=== PATIENT | female | born 1945 | race Caucasian/White ===

== ENCOUNTER 2016-05-22 18:32 | Inpatient (IN) | payer OTHER, MEDICARE ==
--- NOTE | ~2016-05-22 | CO ---
Unit #: [id number] #: [id number] Patient: MAHESH SAMANO [id number] [facility] [address]. [place], [place] [address] [id number] I MR#: [id number] NAME: MAHESH SAMANO. ROOM: 335 Age: 70 Sex: F Admission Date: 05/22/2016 : 1945 Attending Physician: Orlin Perez M.D. Primary Care Physician: Nitish Gutierrez M.D. Consultation Date: 05/23/2016 CONSULTATION REPORT PRIMARY CARE PHYSICIAN Nitish Gutierrez M.D. REASON FOR CONSULT Left-sided numbness. PATIENT IDENTIFICATION A 70-year-old, right-handed, female, evaluated in room 335 at [facility]. SOURCE OF INFORMATION Obtained from the patient as well as medical record. HISTORY OF PRESENT ILLNESS This is a very pleasant 70-year-old, right-handed, female with a past medical history of hypertension, hyperlipidemia, CAD, obesity and is a reformed smoker from several years ago, who presented to [facility] with complaints of new onset vertigo and nausea, which has resolved; however at that time, she states she also developed subsequent left facial and left arm heaviness and numbness. She states that she was shopping and was in her usual state of health when she suddenly did not feel good. She had some nausea and mild sensation of vertigo, though she states that has resolved. She states that she then developed some numbness on her left side of her face, arm and leg. She said it felt heavy though she states she had no trouble ambulating. She went to her primary care physician who recommended that she go to the ER via ambulance; however, the patient declined ambulance and went home, called her brother and had him bring her to the ER. She did receive a dose of aspirin in the PCP's office. She was admitted for further evaluation. She complained of associated blurred vision in her left eye, which has resolved; however, she states that the heaviness and numbness of her left side of her face and arm persisted. She presented to the ER where she was a little hypertensive. Her CT was unremarkable for any acute changes. She denies any exacerbating or alleviating factors. She is unable to tell me if the onset of symptoms was more gradual or sudden. She does report that she had associated heart palpitations. Denies chest pain, loss of consciousness, shortness of air, abdominal pain, bruising or bleeding issues or any other associated symptoms. She denies any associated syncope or near syncope. She states that she feels good today, but that she has persistent left facial and left arm heaviness. She states that she feels as though her left side of her face was drooping and feels as though her speech is a little slurred. PAST MEDICAL HISTORY Unit #: [id number] #: [id number] Patient: MAHESH SAMANO 1. Hypertension. 2. Hyperlipidemia. 3. Diabetes mellitus, type 2. 4. CAD, status post PCI and stent placement 8 years ago. 5. Recent negative stress test, per the patient by Dr. Antonio and a recent negative echo per the patient as well. I do not have those records. 6. EGD in 11/2005 with mild hemorrhagic gastritis. 7. Hypothyroidism. 8. Colonoscopy in 2013 with hemorrhoids and diverticular disease. 9. Bilateral tubal ligation. 10. Benign breast biopsy. ALLERGIES Sulfa. Ibuprofen causes upset stomach. CURRENT MEDICATIONS Include aspirin, Lasix, Lortab, Avapro, Lantus, Synthroid, Lopressor, niacin ER, NovoLog insulin, ProAir, Crestor. FAMILY HISTORY Noncontributory. SOCIAL HISTORY The patient lives with her brother and niece. She stopped smoking 15 years ago. She states that she drinks red wine on occasion, but denies any alcohol abuse. She denies illicit drug use. REVIEW OF SYSTEMS 12-point review of systems was done. Pertinent positives are as discussed above, otherwise negative. PHYSICAL EXAMINATION VITAL SIGNS: Temperature 97.6, she has been afebrile, pulse 56, respirations 18, blood pressure 166/75, oxygen saturation 97% on room air, height 4 feet 11 inches, weight 201 pounds. NEUROLOGIC: The patient is awake. She is alert and oriented to person, place, and time as well as events. No right or left confusion. No finger agnosia. She is not aphasic or apraxic. She states that she feels that her speech is still slurred. She has some very mild nonspecific dysarthria. Her brother, however, states that this is her normal speech. She can name and identify and follows simple commands and 2- and 3-step commands without difficulty. Her general fund of knowledge is intact. Cranial nerve exam, she demonstrates full butler of vision. Eyes are conjugate without ptosis or nystagmus. Extraocular movements are intact. Sensation of face and scalp is intact. Intact to soft touch and pinprick sensation in the face, arm, and leg. She has no extinction noted in sensory, facial or visual. Hearing is intact to finger rub and conversation. Tongue is midline. Uvula is midline. Palate elevation is normal. Head turning and shoulder shrug is unremarkable. Neck is supple. Motor exam, she demonstrates normal bulk and tone and equal strength in the upper extremities. In lower extremities, she demonstrates normal bulk and tone. Her right lower extremity appears to be 5/5. Left lower extremity initially appeared to be weaker, though mild. She had no drift against resistance, though initially appeared to give a good effort. Upon repeated examination, appears to be somewhat inconsistent effort, though I did repeat attempts due to difficult to differentiate whether she had a Unit #: [id number] #: [id number] Patient: MAHESH SAMANO true proximal or distal weakness. Again, sensory exam is intact. Gait and Romberg deferred. Reflexes, unable to elicit. Toes are equivocal. Coordination unremarkable. DIAGNOSTIC STUDIES IMAGING STUDIES: CT of the head on 05/22/2016; impression per Radiology report, mild age-appropriate parenchymal atrophy. No acute intracranial findings. Moderate bilateral ethmoid and right sphenoid sinus disease. CT angiogram of the head and neck on 05/22/2016; impression per Radiology report; there is no evidence of stenosis in the carotid or vertebral arteries within the neck by NASCET criteria. There is some mild plaque in left carotid bifurcations. The right vertebral artery is dominant. Intracranially, there was no evidence of flow-limiting stenosis by NASCET criteria. No aneurysm is seen. No vessel cut off. No vascular malformation. The major dural venous sinuses are patent. Some mild atherosclerotic plaque in both carotid siphons. LABORATORY RESULTS: Urinalysis; greater than 1000 glucose, micro not indicated. Troponin less than 0.05 x2 sets. Sodium 132, potassium 4.3, chloride 101, CO2 of 29, glucose 361, BUN 20, creatinine 1, estimated GFR 58.4, calcium 8.6, AST 20, ALT 20, alkaline phosphatase 104, total protein 7.2, albumin 3.9. White blood cell count 8.8, hemoglobin 12.6, hematocrit 38.4, and platelet count is 224. IMPRESSION 1. Left facial left-sided paresthesia, vertigo, palpitations, questionable etiology. No clearly objective findings on exam other than nonspecific mild dysarthria, though the patient's brother states that her speech is at her baseline. MRI of the brain is negative for any identifiable acute abnormalities. 2. Diabetes mellitus, type 2. 3. Hypertension. 4. Hyperlipidemia. 5. Coronary artery disease. PLAN The patient has persistent symptoms that are very questionable, no objective findings. No objective sensory deficits noted. The patient does not appear to have any acute intracranial abnormalities identified on MRI imaging, which has been reviewed by Dr. Barrera and radiology report noted. The patient is stable for discharge, and ruled out acute primary neurologic issue. If symptoms persist, recommend repeat outpatient MRI imaging of the brain to further evaluate. Nothing to suggest a cervical etiology at this time. Please call for any questions or issues. The patient is seen by Dr. Barrera. He agrees to the above. We discussed with the primary team and the patient is okay for discharge from neurologic standpoint. Otherwise in differential, again consider repeat MRI and consideration of demyelinating. Etiology, however, given her age and presentation to be less likely the new diagnosis. No obvious abnormal lesion seen. On MR imaging, she did have 2 very small chronic appearing T2 abnormalities. Dr. Barrera has reviewed that. They are nonspecific, and again recommended repeat MR imaging if symptoms persist. Please is call for any questions or issues. We thank you very much for allowing us to assist in the care of this patient. Unit #: [id number] #: [id number] Patient: MAHESH SAMANO Dictated by... Timmy SortoPDenia. for Kaye Wright/lester TD: 05/24/2016 04:40 JOB #: [id number] CONSULTATION REPORT X Kavitha Trent APRN X CONSULTATION REPORT
--- NOTE | ~2016-05-22 | HM ---
Unit #: [id number] #: [id number] Patient: MAHESH SAMANO [id number] [place], [place] [address] [id number] I MR#: [id number] NAME: MAHESH SAMANO. : 1945 SEX: F STUDY DATE/TIME: 05/30/2016 UNIT: C3A PCU ROOM: 335 STUDY DESCRIPTION: Holter monitor Attending Physician: Orlin Perez M.D. Referring Physician: Nitish Gutierrez M.D. Primary Care Physician: Nitish Gutierrez M.D. CARDIOLOGY REPORT EXAM Holter monitor. DATE APPLIED May 23, 2016. DATE SCANNED May 27, 2016. DATE READ May 30, 2016. ORDERED BY Orlin Perez M.D. READ BY [facility] Cardiology, Dr. Lc Antonio. REASON FOR STUDY Left-sided numbness. COMMENTS 1. Underlying rhythm is normal sinus. Sinus rate varies between 49 beats per minute as the minimum recorded heart rate and 100 BMP at a maximum recorded heart rate. 2. Rare isolated PVCs are noted with a total of 263 beats in 24 hours. 3. There were 2 runs of accelerated idioventricular rhythm. A 4-beat run at a rate of 100 per minute is noted at 11:38 a.m. 4. Very rare isolated PACs are noted with a total of 24 beats in 24 hours. There is a 3-beat run of atrial tachycardia at a rate of 115 per minute seen at 10:44 p.m. 5. There is no slowing of the heart rate, AV ron block, sinus arrest or sinus pause. 6. The patient did not maintain a symptom or activity diary. Dictated by... Kaye Milner/vijaya TD: 05/31/2016 09:09 Unit #: [id number] #: [id number] Patient: MAHESH SAMANO JOB #: [id number] CARDIOLOGY REPORT X Lc Antonio MD HOLTER MONITOR REPORT
--- NOTE | ~2016-05-22 | CT71 ---
[facility] A Service of [facility] RADIOLOGY TEXT RESULTS PATIENT: MAHESH SAMANO LOCATION: [facility] 335-01 : 46 UNIT #: [id number] AGE: [address]: Orlin Perez MD SEX: F ORDER DR: [id number] [facility] [address] [place], [place] [address] [id number] I MR#: [id number] Acc #: [id number] NAME: MAHESH SAMANO. : 1945 SEX: F STUDY DATE/TIME: 05/22/2016 19:04 UNIT: CEDOF ROOM: 01052 STUDY DESCRIPTION: CT Head Wo Contrast Attending Physician: Orlin Perez M.D. Referring Physician: Nitish Gutierrez M.D. Ordering Physician: Shaji Small D.O. Primary Care Physician: Nitish Gutierrez M.D. MEDICAL IMAGING REPORT This report is preliminary unless electronic signature is present EXAM Noncontrast CT head DATE: 05/22/2016 HISTORY Dizziness, blurred vision, numbness and tingling on the left side of the face. Onset of symptoms at 10 o'clock today. Additional history of cardiac disease, hypertension, asthma. Diabetes. COMPARISON: None. The CT exam was performed with one or more of the following radiation dose reduction techniques: automatic exposure control, adjustment of mA and/or kV according to patient size, and iterative reconstruction. FINDINGS No acute intracranial hemorrhage, mass lesion, mass effect, midline shift. Ventricular configuration is within normal limits. Mild age-appropriate parenchymal atrophy. The hooks matter-white matter junction distinction is preserved without evidence of acute infarct. Moderate bilateral ethmoid and right sphenoid sinus mucosal thickening. Mastoid air cells are clear. Calvaria is normal. IMPRESSION 1. Mild age-appropriate parenchymal atrophy. No acute intracranial findings. 2. Moderate bilateral ethmoid and right sphenoid sinus disease. Dictated by... Sadaf Cedeno M.D. THIS IS AN ELECTRONICALLY VERIFIED REPORT [facility] A Service of [facility] RADIOLOGY TEXT RESULTS PATIENT: MAHESH SAMANO LOCATION: [facility] 335-01 : [birth year] UNIT #: [id number] AGE: [address]: Orlin Perez MD SEX: F ORDER DR: Sadaf Cedeno M.D. at 05/23/2016 2:08 PM BASSAM/gael TD: 05/23/2016 08:55 JOB #: [id number] MEDICAL IMAGING REPORT COPY
--- NOTE | ~2016-05-22 | CT17 ---
[facility] A Service of [facility] & [facility] RADIOLOGY TEXT RESULTS PATIENT: MAHESH SAMANO LOCATION: [facility] 335- : 46 UNIT #: [id number] AGE: [address]: Orlin Perez MD SEX: F ORDER DR: [id number] [facility] [address] [place], [place] [address] [id number] I MR#: [id number] Acc #: [id number] NAME: MAHESH SAMANO. : 1945 SEX: F STUDY DATE/TIME: 05/22/2016 21:47 UNIT: [address] ROOM: [facility] STUDY DESCRIPTION: CT Angio Head Attending Physician: Orlin Perez M.D. Referring Physician: Nitish Gutierrez M.D. Ordering Physician: Holley Moscoso M.D. Primary Care Physician: Nitish Gutierrez M.D. MEDICAL IMAGING REPORT This report is preliminary unless electronic signature is present EXAM Head and neck CT angiogram on 05/23/2016 at 00:45 hours. INDICATIONS Dizziness, blurred vision and left-side numbness to the face since 10:00 a.m. yesterday. Tingling in the hand. History of hypertension. TECHNIQUE Axial images were obtained through the head and neck following IV contrast administration. 3-D reformats were obtained. This CT exam was performed with one or more of the following radiation dose reduction techniques: automatic exposure control, adjustment of mA and/or kV according to patient size, and iterative reconstruction. COMPARISON No comparison CTA. FINDINGS Within the neck, there is minimal plaque at the carotid bifurcations. There is no stenosis by NASCET criteria in the carotid or vertebral arteries. There is no carotid or vertebral dissection. The right vertebral artery is dominant. Intracranially, there is some mild plaque in the carotid siphons, but there is no stenosis by NASCET criteria. No intracranial vessel cutoff is seen and there is no evidence of vascular malformation. No aneurysm. The major dural venous sinuses are patent. IMPRESSION 1. There is no evidence of stenosis in the carotid or vertebral arteries within the neck by NASCET criteria. There is some mild plaque in both carotid bifurcations. The right vertebral artery is dominant. [facility] A Service of [facility] & [facility] RADIOLOGY TEXT RESULTS PATIENT: MAHESH SAMANO LOCATION: C3A 335-01 : [birth year] UNIT #: [id number] AGE: [address]: Orlin Perez MD SEX: F ORDER DR: 2. Intracranially, there is no evidence of flow-limiting stenosis by NASCET criteria. No aneurysm is seen, there is no vessel cutoff. No vascular malformation. The major dural venous sinuses are patent. There is some mild atherosclerotic plaque in both carotid siphons. Dictated by... Robert Montiel Jr., M.D. THIS IS AN ELECTRONICALLY VERIFIED REPORT Robert Montiel Jr., M.D. at 05/23/2016 10:00 PM AUGUSTO/enzo TD: 05/23/2016 10:46 JOB #: [id number] MEDICAL IMAGING REPORT COPY
--- NOTE | ~2016-05-22 | EKG ---
PATIENT: MAHESH SAMANO UNIT #: [id number] Ventricular Rate: 73 BPM Atrial Rate: 73 BPM P-R Interval: 206 ms QRS Duration: 82 ms Q-T Interval: 380 ms QTC Calculation(Bezet): 418 ms P Kingston: 69 degrees Calculated R Kingston: 77 degrees Calculated T Kingston: 59 degrees Diagnosis Line: Normal sinus rhythm with sinus arrhythmia Diagnosis Line: Low voltage QRS Diagnosis Line: Borderline ECG Diagnosis Line: No previous ECGs available Diagnosis Line: Confirmed by MAU MULLER MD ([id number]) on Diagnosis Line: 05/23/2016 4:11:36 PM INTERPRETING MD: YOHANA INTERIANO
--- NOTE | ~2016-05-22 | MR18 ---
[facility] A Service of [facility] & [facility] RADIOLOGY TEXT RESULTS PATIENT: MAHESH SAMANO LOCATION: [facility] 335- : 46 UNIT #: [id number] AGE: [address]: Orlin Perez MD SEX: F ORDER DR: [id number] [facility] [address] [place], [place] [address] [id number] I MR#: [id number] Acc #: [id number] NAME: MAHESH SAMANO. : 1945 SEX: F STUDY DATE/TIME: 05/23/2016 8:47 [facility]: [facility] STUDY DESCRIPTION: MR Brain Wo Contrast Attending Physician: Orlin Perez M.D. Referring Physician: Nitish Gutierrez M.D. Ordering Physician: Holley Moscoso M.D. Primary Care Physician: Nitish Gutierrez M.D. MRI CENTER REPORT This report is preliminary unless electronic signature is present. EXAM MRI of the brain without contrast dated 05/23/[address] head without contrast dated 05/22/2016. CT angiogram head and neck dated 05/23/2016. HISTORY Dizziness, blurred vision, numbness and tingling in the left side, heaviness since 10 a.m. on 05/22/2016 TECHNIQUE Multisequence, multiplanar imaging of the brain was obtained without contrast. FINDINGS No acute stroke, space occupying intracranial mass, mass effect, midline shift or hydrocephalus. Few small hyperintense T2 signal lesions are noted in the bifrontal subcortical white matter, nonspecific. There is small cavum septum pellucidum and vergae. Paranasal sinus mucosal thickening is seen with mild S-shaped nasal septal deviation. Imaged orbits of the ocular structures and mastoids do not demonstrate any significant abnormality. Thick slices through the sella with the pituitary gland, pineal region are within normal limits. Degenerative changes are in the upper cervical spine, unremarkable. IMPRESSION 1. Nonspecific scattered few hyperintense T2 signal lesions are noted in the brain likely related to mild chronic microvascular ischemic change or migraine based on age and statistics. 2. Paranasal sinus mucosal thickening is noted. Correlate with sinusitis. Small air fluid level is suspected in the right sphenoid STS. [facility] A Service of [facility] & [facility] RADIOLOGY TEXT RESULTS PATIENT: MAHESH SAMANO LOCATION: [facility] 335-01 : 46 UNIT #: [id number] AGE: [address]: Orlin Perez MD SEX: F ORDER DR: and bilateral ethmoid sinuses. Superimposed [id number] sinusitis is in the differential consideration in the appropriate clinical setting. 3. No acute stroke, space occupying intracranial mass, hydrocephalus or midline shift. 4. Tiny cavum septum pellucidum and vergae are noted incidentally. Dictated by... Isabella Rojas M.D. THIS IS AN ELECTRONICALLY VERIFIED REPORT Isabella Rojas M.D. at 05/23/2016 3:34 PM CPR/to TD: 05/23/2016 13:46 JOB #: [id number] MRI CENTER REPORT COPY
--- NOTE | ~2016-05-22 | DS ---
Unit #: [id number] #: [id number] Patient: MAHESH SAMANO [id number] [address] [place], [place] [address] [id number] I MR#: [id number] NAME: MAHESH SAMANO. ROOM: 335 Age: 70 Sex: F Admission Date: 05/22/2016 : 1945 Discharge Date: 05/23/2016 Attending Physician: Orlin Perez M.D. Referring Physician: Nitish Gutierrez M.D. Primary Care Physician: Nitish Gutierrez M.D. DISCHARGE SUMMARY DISCHARGE DIAGNOSES 1. Left sided numbness which had resolved at this time: The patient has had negative stroke workup. MRI shows that there is no acute or subacute cerebrovascular accident. Neurology felt the symptom has persisted too long to felt to be transient ischemic attack. Patient will be given 24 hour Holter monitor to assess for any arrhythmia. The patient has been given careful instructions for any symptoms of limb paralysis, slurred speech, facial droop, drooling, to notify physician or to come back to the emergency department for further evaluation. 2. Type 2 diabetes, on insulin therapy at home. 3. Hyperlipidemia, on statin therapy at home. 4. Essential hypertension. 5. History of coronary artery disease, status post percutaneous coronary intervention and stent. Had recent negative stress and normal echocardiogram. 6. History of hypothyroidism. PROCEDURES None. [facility] ANALYST Dr. Barrera - Neurology. IMAGING Imaging consists of CT angio of head and neck with impression - there is no evidence of stenosis in the carotid or vertebral arteries within the neck by NASCET criteria. There is some mild plaque in both carotid bifurcations. The right vertebral artery is dominant. 2) Intracranially, there is no evidence of flow-limiting stenosis by NASCET criteria. No aneurysm is seen, there is no vessel cutoff. No vascular malformation. The major dural venous sinuses are patent. There is some mild atherosclerotic plaque in both carotid siphons. MRI of brain without contrast with impression - nonspecific scattered few hyperintense T2 signal lesions are noted in the brain likely related to mild chronic microvascular ischemic change or migraine based on age and statistics. Paranasal sinus mucosal thickening is noted. Correlate with sinusitis. Small air fluid level is suspected in the right sphenoid and bilateral ethmoid sinuses. Superimposed [id number] sinusitis is in the differential consideration in the appropriate clinical setting. No acute stroke, space occupying intracranial mass, hydrocephalus or midline shift. Tiny cavum septum pellucidum and vergae are noted incidentally. Unit #: [id number] #: [id number] Patient: MAHESH SAMANO LABS On the day of discharge, the patient's labs include a BMP with glucose of 361, BUN 20, creatinine 1.0, sodium 132, potassium 4.3, chloride 101, CO2 29, calcium 8.6, total protein 7.2, albumin is 3.9, total bilirubin is 0.3. AST is 20, ALT is 20, alkaline phos. is 104. CBC with WBC of 8.8, RBC is 4.60, hemoglobin is 12.6, hematocrit is 38.4, MCV is 83.6, MCH is 27.4, MCHC is 32.8, RDW is 14.4, platelets of 224, MPV is 8.3. HOSPITAL COURSE The patient is a pleasant 70-year-old female with a past medical history of essential hypertension, hyperlipidemia, type 2 diabetes, coronary artery disease, who presents to the emergency department due to left sided tingling. The patient stated that she was feeling well until the morning of admission around 10:00 when she started to have symptoms of nausea, vomiting and sensation of mild vertigo. She saw her primary care physician shortly thereafter who recommended that she be taken to the emergency room for further evaluation. However, the patient declined ambulance and she went home initially. She continued to have increasing symptoms with her left eye feeling blurred and left sided tingling of the left face, arm and left hand with some heaviness in her left arm and left hand as well. She presented to the emergency department where she was somewhat hypertensive. Her initial work was fairly unremarkable except for glucose of 361. Her primary care physician gave her 325 mg aspirin orally prior to discharging her to the emergency department. Head CT shows some age appropriate atrophy and mild sinus disease. EKG with sinus rhythm with occasional PVC on exam. She has subjective numbness on the left face and left arm but she had no physical focal deficits. Dr. Barrera of neurology was consulted given her stroke-like symptoms. We have proceeded with MRI of the brain. At the time of my assessment, the patient is symptom free and she states that she does admit to having some stressors at home. She tells me that she has a "crazy brother" but she tells me that when she is unable to tolerate him anymore she drives off and does not let this bother her. She denies that this is giving her any symptoms of depression or anxiety. The patient is stable at this time to be discharged home. We recommend that if patient's symptoms do recur that have an MRI evaluated. Due to no CVA and less likely TIA symptoms of neurology, I recommend that she resume her home management for antiplatelet and statin therapy. We will not be escalating this any further at this time. A Holter monitor has been ordered and she will have it for 24 hours. Results can be called back to Dr. Gutierrez, her primary care physician. DISCHARGE CONDITION Stable. DISCHARGE DIET Heart healthy with parameters of consistent carb per [place] [employer] recommended diet. ACTIVITIES Resume activity as prior to hospitalization with ambulating every day as tolerated. DISCHARGE MEDICATIONS Includes: 1. Aspirin 81 mg orally daily. Unit #: [id number] #: [id number] Patient: MAHESH SAMANO 2. Farxiga 5 mg orally daily. 3. Lasix 20 mg orally daily. 4. Lortab 5/500, half tablet orally twice daily. 5. Irbesartan 300 mg orally daily. 6. Lantus 40 units subcutaneously at bedtime. 7. Levothyroxine 150 mg orally daily. 8. Lopressor 12.5 mg orally daily. 9. Niacin extended release 500 mg orally at bedtime. 10. NovoLog 15 units subcutaneously three times daily and at bedtime. 11. ProAir two puffs inhaled every four hours as needed for shortness of breath and/or wheezing. 12. Crestor 40 mg orally at bedtime. Dictated by... Stacey Schreiber PA-C for Kaye Valladares/jordana TD: 05/25/2016 07:09 JOB #: [id number] DISCHARGE SUMMARY X X DISCHARGE SUMMARY
--- NOTE | ~2016-05-22 | HP ---
Unit #: [id number] #: [id number] Patient: MAHESH SAMANO [id number] [address] [place], [place] [address] [id number] I MR#: [id number] NAME: MAHESH SAMANO. ROOM: 87676 Age: 70 Sex: F Admission Date: 05/22/2016 : 1945 Attending Physician: Holley Moscoso M.D. Referring Physician: Nitish Gutierrez M.D. Primary Care Physician: Nitish Gutierrez M.D. HISTORY AND PHYSICAL CHIEF COMPLAINT Left-sided numbness, slurred speech, and dizziness. HISTORY OF PRESENT ILLNESS This pleasant 70-year-old female with hypertension, hyperlipidemia, AODM, and CAD, is admitted for complaints of left-sided tingling. The patient states that she was well until about 10 o'clock this morning when she developed nausea, vomiting, and sensation of mild vertigo. She saw her primary care physician shortly afterwards, who recommended that she be taken immediately to the ER. However, the patient declined ambulance, and I believe she went home initially. She continued to have increasing symptoms with her left eye feeling blurred and left-sided tingling of the left face, arm, and left hand with some heaviness in her left arm and left hand as well. She presented to this emergency department this afternoon where she was somewhat hypertensive. Her workup otherwise is fairly unremarkable except for a glucose of 361. Her primary care physician gave her 325 mg of aspirin prior to her coming to the ER. Head CT shows mild age-appropriate atrophy and mild sinus disease only. EKG shows a sinus rhythm with occasional APC. On examination, she has a subjective numbness over the left face and left arm. PAST MEDICAL HISTORY 1. Hypertension. 2. Hyperlipidemia. 3. Adult-onset diabetes mellitus. 4. Coronary artery disease, status post PCI and stent placement patient reports about eight years ago. She reports a recent negative stress test by Dr. Antonio and a recent echo performed I believe over the past week or two. 5. EGD in November 2005 with mild hemorrhagic gastritis. 6. Hypothyroidism. 7. Colonoscopy in September 2013 with hemorrhoids and diverticular disease. 8. Bilateral tubal ligation. 9. Benign breast biopsy. ALLERGIES SULFA. IBUPROFEN CAUSES STOMACH UPSET. HOME MEDICATIONS 1. Aspirin 81 mg daily. 2. Lasix 20 mg daily as needed. 3. Lortab 5/500 at 1/2 tablet b.i.d. p.r.n. 4. Avapro 300 mg daily. Unit #: [id number] #: [id number] Patient: MAHESH SAMANO 5. Lantus 40 units subcutaneous at bedtime. 6. Synthroid 0.15 mg daily. 7. Lopressor 12.5 mg b.i.d. 8. Niacin ER 500 mg at bedtime. 9. NovoLog 15 units t.i.d. with meals plus sliding scale insulin. 10. ProAir as needed. 11. Crestor 40 mg each evening. FAMILY HISTORY Malignancy. SOCIAL HISTORY The patient lives with her brother and niece. She stopped smoking 15 years ago. She drinks occasional dry red wine. REVIEW OF SYSTEMS Notable for a sensation of dizziness, some slurred speech, left-sided tingling of the face and left arm with heaviness in the left face and left arm, blurred vision left eye, hypertension, hyperlipidemia, AODM, CAD, some palpitations, hypothyroidism, and above-mentioned surgeries. All other systems were reviewed and are otherwise negative. PHYSICAL EXAMINATION GENERAL: A pleasant, moderately obese, 70-year-old female currently in no acute distress. VITAL SIGNS: Temperature 97.6, pulse 80, respirations 16, blood pressure 156/64, and O2 saturation is 100% on room air. HEENT: Eyes PERRLA. Extraocular muscles are intact. Pharynx is benign. NECK: Supple without adenopathy, thyromegaly, or carotid bruits. CHEST: Clear. CARDIAC: Normal S1 and S2, without S3, S4, or murmur. ABDOMEN: Bowel sounds are present. No hepatosplenomegaly, tenderness, or masses. EXTREMITIES: Without clubbing, cyanosis, or edema. Pedal pulses are present. No ulcers on the feet. NEUROLOGIC: Patient is awake, alert, and oriented. Her speech is fluent. Cranial nerves are intact. She has +5 over 5 strength throughout. Normal rapid alternating movements. Normal mugtoh-ka-xkkf. Negative pronator drift. Normal faps-ey-jknk. She can sit up without assistance. She does however, feel somewhat dizzy when sitting up. DIAGNOSTIC STUDIES LABORATORY: Hematocrit 38.4 with normal white count and platelet count. SMA-12: Glucose is 361 and sodium 132. Cardiac markers are negative. Urinalysis with positive glucose. IMAGING: Head CT shows age-appropriate atrophy and sinus disease. CARDIOLOGY: EKG normal sinus rhythm, rate 73, with occasional APC. ASSESSMENT 1. Left-sided numbness affecting the face and left arm with complaints of heaviness in the face and arm and slurred speech. Examination is unremarkable except for subjective numbness. 2. Adult-onset diabetes mellitus with hyperglycemia. 3. Hyperlipidemia. 4. Hypertension. 5. Coronary artery disease, status post percutaneous coronary Unit #: [id number] #: [id number] Patient: MAHESH SAMANO intervention and stent, with recent negative stress test and echocardiogram. 6. Hypothyroidism. PLANS 1. CTA of the head and neck. 2. Increase aspirin. 3. MRI of the brain, Holter monitor. Will obtain prior echo and stress test results and obtain a lipid profile. 4. DVT prophylaxis. 5. Neuro checks q.4 hours. 6. Neurology consultation. Dictated by Kaye Sy/faye TD: 05/22/2016 21:59 JOB #: [id number] HISTORY AND PHYSICAL X Holley Moscoso MD X HISTORY AND PHYSICAL
[2016-05-22 16:23] LABS: BASOPHIL# 0.1 X10e3 (0-0.3); EOSINOPHIL# 0.5 X10e3 (0-0.7); EOSINOPHIL% 5.6 % (0.0-7.0); HEMATOCRIT 38.4 % (35.0-45.0); HEMOGLOBIN 12.6 gm/dL (12.0-16.0); LYMPHOCYTE# 2.1 X10e3 (1.0-3.5); LYMPHOCYTE% 23.5 % (17.0-45.0); MEAN CELL VOLUME 83.6 FL (83-96); MEAN CORPUSCULAR HEMOGLOBIN 27.4 PG (28-34); MEAN CORPUSCULAR HGB CONC 32.8 g/dL (30-36); MEAN PLATELET VOLUME 8.3 FL (6.5-11.5); MONOCYTE# 0.4 X10e3 (0-1.0); MONOCYTE% 4.9 % (3.0-12.0); NEUTROPHIL# 5.7 X10e3 (1.5-7.1); PLATELET COUNT 224 X10e3 (140-420); RED CELL DISTRIBUTION WIDTH 14.4 % (11.0-15.5); WHITE BLOOD COUNT 8.8 X10e3 (4.0-10.5)
[2016-05-22 16:28] LABS: DIFF IND NO
[2016-05-22 16:56] LABS: ALBUMIN SERUM 3.9 g/dL (3.5-5.0); BILIRUBIN, DIRECT 0.1 mg/dL (0.0-0.2); BILIRUBIN,INDIRECT 0.2 mg/dL (0.0-0.9); BILIRUBIN,TOTAL 0.3 mg/dL (0.2-2.0); CALCIUM SERUM 8.6 mg/dL (8.4-10.2); GLOM FILT RATE Estimated 58.4 mL/min (>60); POTASSIUM 4.3 mmol/L (3.5-5.1); PROTEIN TOTAL SERUM 7.2 g/dL (6.0-8.3)
[~2016-05-22 18:32] MED LIST: ACTOS PO; ALBUTEROL17 GM; ALDACTAZIDE 25/1 TAB; ASPIRIN; AVANDIA; AVAPRO300 M1 PO; BAYER CHEWABLE81 MG PO; CRESTOR40 MG PO; HYDROCHLOROTHIA25 MG DOB; JANUVIA PO; LANTUS SOLOSTAR3 ML; LANTUS100 U/ML; LASIX20 MG PO; LESCOL XL80 MG; LORTAB 5/500 TA1 TA1 PO; METOPROLOL TAR25 MG DOB; MULTI-VITAMIN1 TAB; NIACIN500 M2 PO; NOVOLOG100 U/M2; PERCOCET5/325 PO; PRILOSEC; SYNTHROID; SYNTHROID PO; VICODIN 5/500 T1 TAB PO; VYTORIN 10/40 T1 TAB; ZESTORETIC 20/21 TAB
[2016-05-22 18:38] LABS: POC - TROPONIN <0.05 ng/mL (<=0.05)
[2016-05-22 18:51] LABS: POC - CKMB 2.2 ng/mL (0.0-7.9); POC - TROPONIN <0.05 ng/mL (<=0.05)
[2016-05-22 18:55] LABS: URINE SOURCE CLEAN CATCH
[2016-05-22 19:02] LABS: URINE APPEARANCE CLEAR; URINE BILIRUBIN NEG (NEG); URINE BLOOD NEG (NEG); URINE COLOR YELLOW; URINE GLUCOSE >1000 MG/DL (NEG); URINE KETONE NEG (NEG); URINE LEUKOCYTE ESTERASE NEG (NEG); URINE NITRATE NEG (NEG); URINE PROTEIN NEG (NEG); URINE SPECIFIC GRAVITY 1.021 (1.003-1.035); URINE UROBILINOGEN 0.2 MG/DL (NEG)
[2016-05-22 19:19] LABS: CULTURE INDICATED? NO
[2016-05-22] MEDS ORDERED: ASPIRIN81 M2 PO (20:23)
[2016-05-22] MEDS ORDERED: FARXIGA5 MG PO (20:23)
[2016-05-22] MEDS ORDERED: LASIX20 MG PO (20:24)
[2016-05-22] MEDS ORDERED: LORTAB 5/500 TA1 TA2 PO (20:24)
[2016-05-22] MEDS ORDERED: LEVO-T125 MCG PO (20:25)
[2016-05-22] MEDS ORDERED: IRBESARTAN300 MG PO (20:25)
[2016-05-22] MEDS ORDERED: LANTUS100 U/ML SUBQ (20:25)
[2016-05-22] MEDS ORDERED: LOPRESSOR PO (20:26)
[2016-05-22] MEDS ORDERED: NIACIN ER500 MG PO (20:26)
[2016-05-22] MEDS ORDERED: NOVOLOG100 U/M1 SUBQ (20:27)
[2016-05-22] MEDS ORDERED: PROAIR HFA8.5 GM INH (20:28)
[2016-05-22] MEDS ORDERED: CRESTOR40 MG PO (20:28)
[2016-07-13] MEDS ORDERED: LANTUS100 U/ML (12:07)
[2016-07-13] MEDS ORDERED: VITAMIN D2000 UNIT PO (12:09)
== END 2016-05-23 18:57 | disposition home or self-care (01) | DRG 93 ==
LOC: CED 18:32 → CEDOF 21:20 → C3A PCU 05-23 09:22
PROVIDERS: Emergency Medicine; Student in an Organized Health Care Education/Training Program
DX: R29.810 Facial weakness (principal); I10 Essential (primary) hypertension; R20.8 Other disturbances of skin sensation; E11.9 Type 2 diabetes mellitus without complications; E78.5 Hyperlipidemia, unspecified; I25.10 Atherosclerotic heart disease of native coronary artery without angina pectoris; Z95.5 Presence of coronary angioplasty implant and graft; E03.9 Hypothyroidism, unspecified; Z88.2 Allergy status to sulfonamides; Z88.6 Allergy status to analgesic agent; Z87.891 Personal history of nicotine dependence; R42 Dizziness and giddiness; R00.2 Palpitations
CPT/HCPCS: 36415; 70450; 70496; 70498; 70551; 80048; 80076; 81003; 82553; 82947; 84484; 85025; 90732; 93005; 93225; 93226; 94640; 99285; G0009; J1815; Q9967

== ENCOUNTER → 2016-06-21 | Outpatient (CLI) | payer OTHER, MEDICARE ==
[~2016-06-21] MED LIST changes: +ASPIRIN81 M2 PO; +FARXIGA5 MG PO; +IRBESARTAN300 MG PO; +LANTUS100 U/ML SUBQ; +LEVO-T125 MCG PO; +LOPRESSOR PO; +LORTAB 5/500 TA1 TA2 PO; +NIACIN ER500 MG PO; +NOVOLOG100 U/M1 SUBQ; +PROAIR HFA8.5 GM INH; +VITAMIN D2000 UNIT PO
--- NOTE | ~2016-06-21 | NM22 ---
[facility] A Service of [facility] & [facility] RADIOLOGY TEXT RESULTS PATIENT: MAHESH SAMANO LOCATION: US : 46 UNIT #: [id number] AGE: [address]: Luis Manuel Campos MD SEX: F ORDER DR: [id number] [id number] [facility] [place], [place] [address] [id number] O MR#: [id number] Acc #: [id number] NAME: MAHESH SAMANO : 1945 SEX: F STUDY DATE/TIME: 06/21/2016 9:42 UNIT: CGUS ROOM: STUDY DESCRIPTION: NM Hepatobiliary W GB Pharm Attending Physician: Luis Manuel Campos Jr., M.D. Referring Physician: Luis Manuel Campos Jr., M.D. Ordering Physician: Luis Manuel Campos Jr., M.D. Primary Care Physician: Nitish Gutierrez M.D. MEDICAL IMAGING REPORT This report is preliminary unless electronic signature is present EXAM HIDA scan with Kinevac CCK, 06/21/2016 HISTORY Right upper quadrant abdominal pain, generalized abdominal burning sensation with loose stools. Abdominal bloating and gas. Symptoms for 6 months. FINDINGS The patient received an intravenous injection of 6 mCi of technetium 99m tagged Choletec for hepatobiliary imaging. 1 hour following injection of the radiopharmaceutical the patient received an intravenous injection of 1.8 mcg of Kinevac. There is homogeneous distribution of the radiotracer throughout the liver. Gallbladder activity was seen by 30 minutes postinjection of the radiopharmaceutical. Following Kinevac injection the gallbladder ejection fraction was 79.4% (normal is greater than 30%). IMPRESSION Normal HIDA scan with gallbladder ejection fraction of 79.4%. Dictated by... Delon Hernadez M.D. THIS IS AN ELECTRONICALLY VERIFIED REPORT Delon Hernadez M.D. at 06/21/2016 1:46 PM LESTER/germaine TD: 06/21/2016 11:45 JOB #: [id number] [facility] A Service of [facility] & [facility] RADIOLOGY TEXT RESULTS PATIENT: MAHESH SAMANO LOCATION: [facility] #: [id number] : [birth year] UNIT #: [id number] AGE: [address]: Luis Manuel Campos MD SEX: F ORDER DR: MEDICAL IMAGING REPORT Page 1 of 1 COPY
--- NOTE | ~2016-06-21 | US6 ---
[facility] A Service of [facility] & [facility] RADIOLOGY TEXT RESULTS PATIENT: MAHESH SAMANO LOCATION: [facility] : [birth year] UNIT #: [id number] AGE: [address]: Luis Manuel Campos MD SEX: F ORDER DR: [id number] [facility] [address] [facility]. [place], [place] [address] [id number] O MR#: [id number] Acc #: [id number] NAME: MAHESH SAMANO : 1945 SEX: F STUDY DATE/TIME: 06/21/2016 8:08 UNIT: US ROOM: STUDY DESCRIPTION: US Abdominal Limited Attending Physician: Luis Manuel Campos Jr., M.D. Referring Physician: Luis Manuel Campos Jr., M.D. Ordering Physician: Luis Manuel Campos Jr., M.D. Primary Care Physician: Nitish Gutierrez M.D. MEDICAL IMAGING REPORT This report is preliminary unless electronic signature is present EXAM Right upper quadrant ultrasound 06/21/2016 HISTORY Right upper quadrant abdominal pain for 2 months. FINDINGS The liver is homogeneous in echotexture demonstrates no cystic or solid mass lesions. The intra and extrahepatic bile ducts are not dilated. The gallbladder is normal with no evidence of cholelithiasis, wall thickening or pericholecystic fluid. The common duct measures 5 mm. The pancreas is normal. 2 cysts are seen on the right kidney measuring 2.2 cm and 5.5 cm respectively. IMPRESSION 1. Normal gallbladder. 2. Right renal cysts. Dictated by... Delon Hernadez M.D. THIS IS AN ELECTRONICALLY VERIFIED REPORT Delon Hernadze M.D. at 06/22/2016 8:07 AM KRT/to TD: 06/21/2016 13:14 JOB #: [id number] MEDICAL IMAGING REPORT Page 1 of 1 COPY
== END | disposition home or self-care (01) ==
LOC: CGUS 07:47
DX: R10.13 Epigastric pain (principal); R10.11 Right upper quadrant pain; N28.1 Cyst of kidney, acquired
CPT/HCPCS: 76705; 78227; A9537; J2805

== ENCOUNTER → 2016-07-20 | Day surgery (SDC) | payer OTHER, MEDICARE ==
--- NOTE | ~2016-07-20 | OR ---
Unit #: [id number] #: [id number] Patient: MAHESH SAMANO [id number] [address] [place], [place] [address] [id number] O MR#: [id number] NAME: MAHESH SAMANO ROOM: Date of Procedure: 07/20/2016 Admission Date: 07/20/2016 Surgeon: Luis Manuel Campos Jr., M.D. : 1945 Attending Physician: Luis Manuel Campos Jr., M.D. Referring Physician: Luis Manuel Campos Jr., M.D. Primary Care Physician: Nitish Gutierrez M.D. OPERATIVE REPORT INDICATIONS FOR PROCEDURE The patient is a 70-year-old white female, who recently presented to the office complaining of some intermittent rectal bleeding as well as abdominal pain. Most of her abdominal pains in mid epigastric, but she has also had some lower abdominal pain. She is brought in this time at her request for upper and lower endoscopy. She has had no recent endoscopies. PREOPERATIVE DIAGNOSES Possible occult ulcer disease, rectal bleeding etiology? POSTOPERATIVE DIAGNOSES On upper endoscopy, the patient was noted to have a small hiatal hernia and mild erosive gastritis mostly involving the antrum and cardia, and moderate duodenitis of the bulb and the second portion of the duodenum. On colonoscopy, the patient was noted to have evidence of normal scope. ANESTHESIA MAC anesthesia. PROCEDURE PERFORMED Flexible fiberoptic esophagogastroduodenoscopy with antral biopsy for Helicobacter pylori and flexible colonoscopy to the distal ileum. DESCRIPTION OF PROCEDURE The patient was positioned in Bourne position with left side down. After being given MAC anesthesia, Olympus XQ scope was passed through the proximal esophagus. The entire esophagus was examined. There was no evidence of any significant esophagitis and no evidence of any stenosis. The scope was advanced through the GE junction, where there was a small hiatal hernia down into the cardia, fundic, and antral region of the stomach and retroflexed back up to the area of the cardia, again noted was a small hiatal hernia. There was some mild erosive gastritis in the cardia as well as in the antral area. The stomach distended well without evidence of rigidity, no evidence of any gastric ulcer disease. The scope was advanced down the prepyloric region, where a biopsy was taken from the antrum for Helicobacter pylori without significant bleeding. Initially, there was a small amount of coffee-ground material in the stomach prior to the biopsy. The scope was advanced through the pylorus and the duodenal bulb, where there was moderate duodenitis without ulceration mostly between the first and down to the second portion of the duodenum. The scope was advanced down to the second portion of the duodenum towards Unit #: [id number] #: [id number] Patient: MAHESH SAMANO third portion and this all appeared normal. The scope was then slowly removed. Biopsy had been taken from the antrum for H pylori and there was no significant bleeding. The patient was repositioned for colonoscopy. Digital rectal examination was performed, which revealed no palpable mass or tenderness. No blood or stool within the rectal ampulla. The Olympus colonoscope was advanced through the anal canal up the rectum and retroflexed down to the area of the anorectal region. There were small internal hemorrhoidal tags felt to be of no major consequence. The scope was then straightened and advanced up in the rectosigmoid, in the sigmoid and descending colon areas, around the splenic flexure and the transverse colon, around the hepatic flexure and ascending colon, down in the area of the cecum. The light from the tip of the scope could be seen transilluminating through right lower quadrant abdominal wall area. The scope was advanced up the distal ileum approximately 10 to 12 inches. There was no evidence of any ileitis or inflammatory bowel disease. The scope was slowly removed. There were no tumors, polyps, cancer, or AVMs. No evidence of any colitis, diverticulosis, or diverticulitis. The caliber of the colon appeared normal throughout without evidence of narrowing or obstruction. The scope was removed. The patient tolerated the procedure well and discharged in satisfactory condition. Dictated by... Luis Maunel Campos Jr., M.D. JMB/lester TD: 07/21/2016 00:07 JOB #: [id number] OPERATIVE REPORT Page 1 of 1 X Luis Manuel Campos MD X PROCEDURE OPERATIVE NOTE
== END | disposition home or self-care (01) ==
LOC: COPS 10:12
DX: K29.00 Acute gastritis without bleeding (principal); K29.80 Duodenitis without bleeding; K62.5 Hemorrhage of anus and rectum; K64.8 Other hemorrhoids; K44.9 Diaphragmatic hernia without obstruction or gangrene; I10 Essential (primary) hypertension; J44.9 Chronic obstructive pulmonary disease, unspecified; J45.909 Unspecified asthma, uncomplicated; E03.9 Hypothyroidism, unspecified; E11.9 Type 2 diabetes mellitus without complications; E66.9 Obesity, unspecified; K21.9 Gastro-esophageal reflux disease without esophagitis; M19.90 Unspecified osteoarthritis, unspecified site; Z68.41 Body mass index [BMI] 40.0-44.9, adult; Z86.73 Personal history of transient ischemic attack (TIA), and cerebral infarction without residual deficits; Z87.891 Personal history of nicotine dependence; Z88.2 Allergy status to sulfonamides; Z88.8 Allergy status to other drugs, medicaments and biological substances; Z79.82 Long term (current) use of aspirin; Z79.899 Other long term (current) drug therapy; Z95.5 Presence of coronary angioplasty implant and graft
CPT/HCPCS: 82947; 87077; J2250

== ENCOUNTER → 2016-11-07 | Outpatient (CLI) | payer OTHER, MEDICARE ==
[2016-11-07 15:23] LABS: ALBUMIN SERUM 3.7 g/dL (3.5-5.0); BILIRUBIN,TOTAL 0.5 mg/dL (0.2-2.0); BUN/CREATININE RATIO 17.77; CALCIUM SERUM 8.5 mg/dL (8.4-10.2); CREATININE SERUM 0.9 mg/dL (0.6-1.4); GLOM FILT RATE Estimated 64.8 mL/min (>60); POTASSIUM 4.5 mmol/L (3.5-5.1); PROTEIN TOTAL SERUM 6.5 g/dL (6.0-8.3); URIC ACID 4.4 mg/dL (2.6-7.2)
== END | disposition home or self-care (01) ==
LOC: CLAB 13:49
PROVIDERS: Internal Medicine Nephrology
DX: N28.9 Disorder of kidney and ureter, unspecified (principal)
CPT/HCPCS: 36415; 80053; 84550; 86334

== ENCOUNTER → 2016-11-28 | Outpatient (CLI) | payer OTHER, MEDICARE ==
--- NOTE | ~2016-11-28 | US78 ---
[facility] A Service of [facility] & [facility] RADIOLOGY TEXT RESULTS PATIENT: MAHESH SAMANO LOCATION: CNIV : 47 UNIT #: [id number] AGE: [address]: Diogenes Miller MD SEX: F ORDER DR: [id number] [facility] [address] [place], [place] [address] [id number] O MR#: [id number] Acc #: [id number] NAME: MAHESH SAMANO : 1945 SEX: F STUDY DATE/TIME: 11/28/2016 9:20 UNIT: CNIV ROOM: STUDY DESCRIPTION: US Kidney Duplex Complete Attending Physician: Sterling Miller M.D. Referring Physician: Sterling Miller M.D. Ordering Physician: Sterling Miller M.D. Primary Care Physician: Nitish Gutierrez M.D. MEDICAL IMAGING REPORT This report is preliminary unless electronic signature is present EXAM Renal Doppler. INDICATIONS Hypertension for 40 years. TECHNIQUE Westbrook-scale, color Doppler and spectral Doppler waveform analysis was performed through the patient's abdomen. FINDINGS Patient does appear to have a right renal cyst. This is better imaged on the patient's dedicated westbrook-scale images. No hydronephrosis is seen on either side. Resistive indices within the right kidney range from 0.64-0.73. Resistive indices within the left kidney range from 0.64-0.76. Renal artery velocities do appear of elevated in the proximal right renal artery measuring up to 201 cm/sec although they are normal within the mid and distal right renal artery measuring 127 cm/sec within the midportion and 79 cm/sec within the distal right renal artery. Waveforms appear normal. Right renal vein is patent. On the left, renal artery velocities are normal measuring 110 cm/sec proximally, 70 cm/sec within the midportion and 56 cm/sec within the distal aorta. Right renal to aortic ratio is 1.7 and left renal artery to aortic ratio 0.9. IMPRESSION Velocity within the proximal right renal artery is elevated at 201 cm/sec. Clinical significance is uncertain as the patient's right renal artery to aortic ratio is within normal limits. The remainder of the velocities throughout the right renal artery are within normal limits and the waveforms appear normal. Possibility however of some stenosis is not excluded. This could be further evaluated with CT angiography or MRA. Dictated by... [facility] A Service of [facility] & [facility] RADIOLOGY TEXT RESULTS PATIENT: MAHESH SAMANO LOCATION: [facility] : 47 UNIT #: [id number] AGE: [address]: Diogenes Miller MD SEX: F ORDER DR: Ernestina Owens M.D. THIS IS AN ELECTRONICALLY VERIFIED REPORT Ernestina Owens M.D. at 11/30/2016 5:40 PM AFF/bd TD: 11/29/2016 14:54 JOB #: [id number] MEDICAL IMAGING REPORT Page 1 of 1 COPY
--- NOTE | ~2016-11-28 | US77 ---
[facility] A Service of [facility] RADIOLOGY TEXT RESULTS PATIENT: MAHESH SAMANO LOCATION: CNIV : 47 UNIT #: [id number] AGE: [address]: Diogenes Miller MD SEX: F ORDER DR: [id number] [facility]. [place], [place] [address] [id number] O MR#: [id number] Acc #: [id number] NAME: MAHESH SAMANO : 1945 SEX: F STUDY DATE/TIME: 11/28/2016 9:57 UNIT: CNIV ROOM: STUDY DESCRIPTION: US Kidney Bilateral Complete Attending Physician: Sterling Miller M.D. Referring Physician: Sterling Miller M.D. Ordering Physician: Sterling Miller M.D. Primary Care Physician: Nitish Gutierrez M.D. MEDICAL IMAGING REPORT This report is preliminary unless electronic signature is present EXAM Renal ultrasound bilateral 11/28/2016 INDICATIONS Renal insufficiency, at recent appointment one month ago. Hypertension. BUN 16 creatinine 0.9, GFR 65. TECHNIQUE Sonographic imaging of the kidneys was performed bilaterally. COMPARISON 06/21/2016 FINDINGS Right kidney measures 12.3 cm long axis and the left 13 cm. No hydronephrosis or shadowing stone on either side. There are 2 benign cysts in the right kidney 1 measuring up to 19 mm in the upper pole and a second in the lower pole measuring up to 5.7 cm. These are not significantly changed from the prior study. There is a benign cyst associated with the posterior mid pole left kidney measuring 2.9 cm. Bladder unremarkable for degree of distension. IMPRESSION 1. No hydronephrosis or shadowing stone on either side. 2. Bilateral renal cysts. Dictated by... Orestes Pinedo M.D. THIS IS AN ELECTRONICALLY VERIFIED REPORT Orestes Pinedo M.D. at 11/29/2016 7:24 AM MELY/lola [facility] A Service of [facility] RADIOLOGY TEXT RESULTS PATIENT: MAHESH SAMANO LOCATION: CNIV : 47 UNIT #: [id number] AGE: [address]: Diogenes Miller MD SEX: F ORDER DR: TD: 11/29/2016 01:15 JOB #: [id number] MEDICAL IMAGING REPORT Page 1 of 1 COPY
== END | disposition home or self-care (01) ==
LOC: CNIV 08:01
DX: I10 Essential (primary) hypertension (principal); N28.9 Disorder of kidney and ureter, unspecified; Q61.02 Congenital multiple renal cysts; R93.421 Abnormal radiologic findings on diagnostic imaging of right kidney
CPT/HCPCS: 76770; 93975